=== PATIENT | female | born 1970 | race African-American/Black ===

== ENCOUNTER 2016-08-29 05:45 | Emergency (ER) | payer OTHER ==
[~2016-08-29] VITALS: Ht 180.3 cm; Wt 100.0 kg
[2016-08-29] MEDS ORDERED: SODIUM CHLORIDE 0.9% 1,000 ML IV ONE (06:19)
[2016-08-29] MEDS ORDERED: KETOROLAC 30MG/ML VIAL IV ONE (06:30)
[2016-08-29 07:01] LABS: BASOPHILS % 0.8 % (0.0-2.0); EOSINOPHILS % 3.8 % (0.0-5.0); HEMATOCRIT. 36.6 % (36.0-48.0); HEMOGLOBIN. 12.9 g/dL (12.0-16.0); LYMPHOCYTES % 43.6 % (20.0-50.0); MEAN CORPUSCULAR HEMOGLOBIN 30.6 pg (28.0-32.0); MEAN CORPUSCULAR VOLUME 87.1 fL (81.0-99.0); MEAN PLATELET VOLUME 7.1 fl (7.4-10.4); MONOCYTES % 8.5 % (2.0-8.0); NEUTROPHILS % 43.3 % (40.0-76.0); PLATELET 271 x1000/uL (130-400); RED BLOOD CELL COUNT 4.21 mill/uL (4.2-5.4); RED CELL DISTRIBUTION WIDTH 14.3 % (11.6-14.6)
[2016-08-29 07:04] LABS: CHLORIDE 103 mEq/L (98-107)
[2016-08-29 07:05] LABS: PROTHROMBIN TIME 10.6 sec
[2016-08-29 07:14] LABS: CARBON DIOXIDE 25 mEq/L (21-32)
[2016-08-29 07:25] VITALS: BP 117/76
[2016-08-29] MEDS ORDERED: METFORMIN HCL 500MG TABLET PO ONE (07:30)
== END 2016-08-29 08:53 | disposition home or self-care (01) ==
LOC: ER 05:50
DX: M79.671 Pain in right foot (principal); G89.29 Other chronic pain; E11.65 Type 2 diabetes mellitus with hyperglycemia; I10 Essential (primary) hypertension; Z79.4 Long term (current) use of insulin
CPT/HCPCS: 36415; 80053; 85025; 85610; 93005; 96374; 99285; J1885; Z7610; J7030